=== PATIENT | male | born 1955 | race Caucasian/White ===

== ENCOUNTER 2021-06-25 09:49 | Outpatient (CLI) | payer OTHER ==
[~2021-06-25] VITALS: Ht 167.6 cm; Wt 81.2 kg
[2021-06-25] MEDS ORDERED: albuterol 2.5 MG/3 ML nebule NEB ONE (10:40)
== END 2021-06-25 23:59 | disposition home or self-care (01) ==
LOC: RT 09:49
DX: C34.90 Malignant neoplasm of unspecified part of unspecified bronchus or lung (principal)
CPT/HCPCS: 94060; 94760